=== PATIENT | male | born 1940 | race Caucasian/White ===

== ENCOUNTER → 2017-01-24 | Outpatient (CLI) | payer MEDICARE | END | disposition home or self-care (01) | LOC: CVU 15:55 | PROVIDERS: ATTEND Internal Medicine Cardiovascular Disease | DX: I08.1 Rheumatic disorders of both mitral and tricuspid valves (principal); I42.9 Cardiomyopathy, unspecified; I49.3 Ventricular premature depolarization; I10 Essential (primary) hypertension; E11.9 Type 2 diabetes mellitus without complications | CPT/HCPCS: 93306 ==

== ENCOUNTER 2019-07-22 08:38 | Outpatient (CLI) | payer MEDICARE | END 2019-07-22 23:59 | disposition home or self-care (01) | LOC: CVU 08:38 | PROVIDERS: ATTEND Internal Medicine Cardiovascular Disease | DX: I08.3 Combined rheumatic disorders of mitral, aortic and tricuspid valves (principal); I31.3 Pericardial effusion (noninflammatory); I11.0 Hypertensive heart disease with heart failure; E11.9 Type 2 diabetes mellitus without complications; I50.9 Heart failure, unspecified | CPT/HCPCS: 93306 ==

== ENCOUNTER 2019-08-12 10:21 | Day surgery (SDC) | payer MEDICARE ==
[~2019-08-12] VITALS: Ht 182.9 cm; Wt 90.1 kg
[~2019-08-12 10:21] MED LIST: BUPIVACAINE/PF-EPI 0.5% 1:200K ONE
[2019-08-12] MEDS ORDERED: FENTANYL PF 100 MCG/2ML ONE ×3 (10:59→14:20)
[2019-08-12] MEDS ORDERED: CEFAZOLIN 1,000 MG ONE (10:59)
[2019-08-12] MEDS ORDERED: ONDANSETRON 2MG/ML, 2ML ONE (10:59)
[2019-08-12] MEDS ORDERED: NEOSTIGMINE 1 MG/ML, 10ML ONE (10:59)
[2019-08-12] MEDS ORDERED: PROPOFOL 10 MG/ML, 20ML ONE (10:59)
[2019-08-12] MEDS ORDERED: ROCURONIUM 10MG/ML,5ML ONE (10:59)
[2019-08-12] MEDS ORDERED: GLYCOPYRROLATE 0.2MG/1ML, 5ML ONE (10:59)
[2019-08-12] MEDS ORDERED: DEXAMETHASONE 4 MG/ML, 1ML ONE (10:59)
[2019-08-12] MEDS ORDERED: SUCCINYLCHOLINE 20 MG/ML, 10ML ONE (10:59)
[2019-08-12] MEDS ORDERED: CHLORHEXIDINE 15 ML UDC MM STA (11:07)
[2019-08-12] MEDS ORDERED: LACTATED RINGERS 1,000 ML IV SCH (11:07)
[2019-08-12 11:08] VITALS: BP 130/63
[2019-08-12] MEDS ORDERED: LOSA100T14 PO (11:13)
[2019-08-12] MEDS ORDERED: SPIR25TA5 PO (11:13)
[2019-08-12] MEDS ORDERED: FURO20TA3 PO (11:13)
[2019-08-12] MEDS ORDERED: TERA10CA3 PO (11:13)
[2019-08-12] MEDS ORDERED: METF500T17 PO (11:13)
[2019-08-12] MEDS ORDERED: PROMETHAZINE 25 MG/ML, 1ML IVPush PRN (11:30)
[2019-08-12] MEDS ORDERED: OXYcodone 5 MG/5 ML ORAL.SOL UDC PO PRN (11:30)
[2019-08-12] MEDS ORDERED: MEPERIDINE/PF 25MG/0.5ML IVPush PRN (11:30)
[2019-08-12] MEDS ORDERED: morphine SULFATE 10 MG/ML, 1ML IVPush PRN (11:30)
[2019-08-12] MEDS ORDERED: HYDROcodone/APAP 7.5-325MG/15ML UDC PO PRN (11:30)
[2019-08-12 12:06] LABS: ANION GAP 4 mmol/L (5-15); CALCIUM 8.6 mg/dL (8.5-10.1); CHLORIDE 110 mmol/L (98-107)
[2019-08-12 12:09] LABS: ALANINE AMINOTRANSFERASE 25 U/L (12-78); ALKALINE PHOSPHATASE 61 U/L (45-117); BILIRUBIN,TOTAL 0.8 mg/dL (0.2-1.0); CREATININE 0.97 mg/dL (0.7-1.3)
[2019-08-12] MEDS ORDERED: SUGAMMADEX 200 MG/2 ML IVPush ONE (12:32)
[2019-08-12] MEDS: FENTANYL PF 100 MCG/2ML IV PRN ×4 (13:50→14:25)
[2019-08-12] MEDS ORDERED: OXYcodone 5 MG/5 ML ORAL.SOL UDC ONE (13:51)
== END 2019-08-12 16:20 | disposition home or self-care (01) ==
LOC: OUT 10:21
PROVIDERS: ATTEND Surgery
DX: K40.30 Unilateral inguinal hernia, with obstruction, without gangrene, not specified as recurrent (principal); Z11.59 Encounter for screening for other viral diseases; I11.0 Hypertensive heart disease with heart failure; I50.9 Heart failure, unspecified; E11.9 Type 2 diabetes mellitus without complications; Z79.84 Long term (current) use of oral hypoglycemic drugs; Z79.899 Other long term (current) drug therapy; Z88.2 Allergy status to sulfonamides; Z88.8 Allergy status to other drugs, medicaments and biological substances; Z98.890 Other specified postprocedural states
CPT/HCPCS: 49650; 80053; 82962; 93005; C1781; J0330; J0690; J1100; J2405; J2704; J2710; J3010; J7120; U0001